=== PATIENT | female | born 1965 | race Caucasian/White ===

== ENCOUNTER 2017-01-22 03:33 | Emergency (ER) | payer MEDICARE, MEDICAID ==
[~2017-01-22] VITALS: Ht 165.1 cm; Wt 68.0 kg
[~2017-01-22 03:33] MED LIST: IBUP-1957 PO
[2017-01-22] MEDS ORDERED: ONDANSETRON ODT 4 MG TAB.RAPDIS ONE (03:50)
[2017-01-22] MEDS ORDERED: MORPHINE SULFATE 4 MG/1 ML DISP.SYRIN ONE (03:50)
[2017-01-22] MEDS ORDERED: ONDANSETRON ODT 4 MG TAB.RAPDIS SL ONE (04:00)
[2017-01-22] MEDS ORDERED: MORPHINE SULFATE 4 MG/1 ML DISP.SYRIN IM ONE (04:00)
--- NOTE | 2017-01-22 05:14 | NUR ---
Patient discharged to home, via "lyft," in stable conditon. Written and verbal after care instructions given. Patient verbalizes understanding of instructions.
== END 2017-01-22 05:16 | disposition home or self-care (01) ==
LOC: ER 03:48
DX: S90.31XA Contusion of right foot, initial encounter (principal); F41.9 Anxiety disorder, unspecified; F17.200 Nicotine dependence, unspecified, uncomplicated; Z88.6 Allergy status to analgesic agent; W01.198A Fall on same level from slipping, tripping and stumbling with subsequent striking against other object, initial encounter; Y93.89 Activity, other specified; Y99.8 Other external cause status; Y92.89 Other specified places as the place of occurrence of the external cause
CPT/HCPCS: 29515; 73700; 96372; 99284; 99406; A4663; J2270; Q0162